=== PATIENT | female | born 1955 | race Caucasian/White ===

== ENCOUNTER → 2020-07-22 15:30 | Outpatient (CLI) | payer MEDICARE, SELFPAY ==
--- NOTE | ~2020-07-22 | MM_ITS ---
EXAMINATION: MM screening polo BI w wagner HISTORY: Screening TECHNIQUE: Craniocaudal and mediolateral oblique 3-D tomosynthesis images were obtained and synthetic 2-D images were generated. CAD analysis was submitted and interpreted. COMPARISON: Comparison to multiple prior studies sequentially, with oldest reviewed study dated 07/22. BREAST PARENCHYMAL COMPOSITION: The breasts are heterogenously dense, which may obscure small masses FINDINGS: There is no evidence of suspicious mass, calcification, or architectural distortion to sugg est malignancy in either breast. There has been no suspicious interval change. IMPRESSION: 1. No mammographic evidence of malignancy. 2. Recommend routine screening mammography in one year. BI-RADS Category 1: Negative Reviewed, dictated and finalized at location A. PAPER MACHINE OPERATOR
== END ==
DX: Z12.31 Encounter for screening mammogram for malignant neoplasm of breast (principal)
CPT/HCPCS: 77063; 77067

== ENCOUNTER → 2021-09-08 12:28 | Outpatient (CLI) | payer MEDICARE, SELFPAY ==
--- NOTE | ~2021-09-08 | MM_ITS ---
EXAMINATION: MM screening polo BI w wagner HISTORY: Screening TECHNIQUE: Craniocaudal and mediolateral oblique 3-D tomosynthesis images were obtained and synthetic 2-D images were generated. CAD analysis was submitted and interpreted. COMPARISON: Comparison to multiple prior studies sequentially, with oldest reviewed study dated 08/15. BREAST PARENCHYMAL COMPOSITION: The breasts are heterogeneously dense, which may obscure small masses . FINDINGS: There are developing asymmetries in the central aspect of the right breast, middle third. T he left breast is stable without evidence for malignancy. IMPRESSION: 1. Developing right breast asymmetries. 2. Additional mammographic views and possible breast ultrasound are recommended. BI-RADS Category 0: Incomplete: Needs additional imaging evaluation. Reviewed, dictated and finalized at location A. IMPRESSION: 1. Developing right breast asymmetries. 2. Additional mammographic views and possible breast ultrasound are recommended . BI-RADS Category 0: Incomplete: Needs additional imaging evaluation.
== END ==
DX: Z12.31 Encounter for screening mammogram for malignant neoplasm of breast (principal)
CPT/HCPCS: 77063; 77067

== ENCOUNTER → 2021-09-22 09:08 | Outpatient (CLI) | payer MEDICARE, SELFPAY ==
--- NOTE | ~2021-09-22 | MMUS_ITS ---
EXAMINATION: MM diagnostic polo RT w wagner, US breast RT complete HISTORY: Developing right breast asymmetry reported on 09/08/2021 screening mammogram examination TECHNIQUE: Additional 3-D tomosynthesis images of right breast were performed and synthetic 2-D image s were generated. Rolled medial and rolled lateral craniocaudal views. CAD analysis was submitted and interpreted. High resolution breast ultrasound was performed. COMPARISON: bilateral screening mammogram FINDINGS: MAMMOGRAPHIC FINDINGS: No suspicious mass, architectural distortion, malignant calcification, skin thickening or retraction is noted. ULTRASOUND: No suspicious mass or shadowing is detected. No other significant sonographic finding. IMPRESSION: 1. No mammographic evidence of malignancy 2. Routine annual mammographic screening is recommended BI-RADS Category 1: Negative Reviewed, dictated and finalized at location A. IMPRESSION: 1. No mammographic evidence of malignancy 2. Routine annual mammographic screening is recommended BI-RADS Category 1: Negative
== END ==
DX: R92.8 Other abnormal and inconclusive findings on diagnostic imaging of breast (principal)
CPT/HCPCS: 76641; 77061; 77065; G0279

== ENCOUNTER 2021-12-09 11:37 | Emergency (ER) | payer MEDICARE, SELFPAY ==
--- NOTE | ~2021-12-09 | XR_ITS ---
EXAMINATION: XR hand RT min 3V INDICATION: Right hand pain, history of prior amputation TECHNIQUE: Three views of the right hand are obtained. COMPARISON: None available FINDINGS: The third and fourth fingers are amputated at the distal interphalangeal joints. The bones are osteopenic which limits the sensitivity for fracture however none is seen. There is advanced oste oarthritis of multiple interphalangeal joints. There is also advanced osteoarthritis at the triscaphe and first carpometacarpal joints. IMPRESSION: 1. 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 Reviewed, dictated and finalized at location B. IMPRESSION: 1. Polyarticular osteoarthritis and prior distal amputation of the third and fo urth fingers without acute osseous abnormality identified, sensitivity limited by osteopenia.
[2021-12-09 11:47] VITALS: BP 76/56; PULSE 60; RESP 20; TEMP 36.5; O2SAT 99
--- NOTE | 2021-12-09 12:20 | ED.UPPEXIN ---
HPI - Extremity Injury (Upper) General Chief Complaint: Extremity Injury, Lower Stated Complaint: right hand swelling Time Seen by Provider: 12/09/21 12:19 Source: patient and RN notes reviewed Mode of arrival: ambulatory Limitations: no limitations History of Present Illness HPI narrative: 66-year-old female presents with concern for right hand pain and swelling. She reports on Sunday her hand was squeezed very tightly causing pain. Reports throughout the day the dorsal aspect of the hand becomes increasingly more swollen. She reports a history of arthritis, she takes medication for arthritis. She denies open skin, laceration, abrasion, redness, warmth. She denies intervention. MD complaint: injury to: right and hand Related Data Home Medications Medication Instructions Recorded Confirmed alprazolam 0.5 mg tablet 1 tablet PO BID PRN anxiety 12/09/21 12/09/21 hydrocodone 5 mg-acetaminophen 325 See Rx Instructions .Route 12/09/21 12/09/21 mg tablet .COMPLEX PRN pain meloxicam 15 mg tablet 1 tablet PO DAILY 12/09/21 12/09/21 omeprazole 40 mg capsule,delayed 1 cap PO DAILY 12/09/21 12/09/21 release Allergies Allergy/AdvReac Type Severity Reaction Status Date / Time Penicillins Allergy Unknown Verified 12/09/21 12:02 Review of Systems Review of Systems: CONSTITUTIONAL: Denies malaise, chills, sweats, or fever. SKIN: Denies rash or itching, open skin, laceration, abrasion, redness, warmth MUSCULOSKELETAL: Reports right hand pain and swelling NEUROLOGIC: Denies numbness, weakness All systems reviewed & are unremarkable except as noted in HPI and below PMFSH Comments At time of signature, agree with nursing past medical, surgical, social and family history. There is no relevant family history pertinent to the presenting complaint Exam Narrative: GENERAL: Well-appearing, well-nourished, and in no acute distress. HEAD: Normocephalic EYES: PERRLA, conjunctivae clear NECK: Supple. CHEST: Speaks in full sentences. No respiratory distress. HEART: Regular rate and rhythm. Normal and equal peripheral pulses. EXTREMITIES: Right hand and digits of hand have normal strength and sensation. 5/5 strength with digit flexion, extension. Range of motion normal. No clubbing, cyanosis. Mild dorsal edema and tenderness noted. Skin intact. Normal digital cascade with flexion of fingers, median, ulnar and radial nerve intact. Normal sensation of each side of finger. Can perform 'okay' sign, 'cross over finger test of index and middle fingers' and 'thumbs up' sign. No scissoring. Normal thumb opposition. Good capillary refill and radial pulse. Distal capillary refill less than 3 seconds. Prior amputation to digits 3 and 4 at the DIP joint noted SKIN: Warn, dry, intact, pink. No rash. Skin intact NEURO: Alert and oriented x3. PSYCH: Normal mood and affect Course Course Emergency Course: Patient is aware of diagnosis, understands and agrees to treatment plan. Anticipatory guidance given. Patient agrees to follow-up as directed and is aware of reasons to seek care at the emergency department. Portions of this record may have been created with voice recognition software Level of Care: Express Care Visit Vital Signs Vital signs: Vital Signs Temperature 97.7 F 12/09/21 11:47 Pulse Rate 60 12/09/21 11:47 Respiratory Rate 20 12/09/21 11:47 Blood Pressure 76/56 L 12/09/21 11:47 Pulse Oximetry 99 12/09/21 11:47 Oxygen Delivery Room Air 12/09/21 11:47 Temperature 97.7 F 12/09/21 11:47 Pulse Rate 60 12/09/21 11:47 Respiratory Rate 20 12/09/21 11:47 Blood Pressure 76/56 L 12/09/21 11:47 Pulse Oximetry 99 12/09/21 11:47 Oxygen Delivery Room Air 12/09/21 11:47 Reviewed. MDM - Extremity Injury (Upper) MDM Narrative Medical decision making narrative: Patients injury and pain is consistent with musculoskeletal etiology. No signs of neurological or vascular compromise on exam. Compartments and ti
== END 2021-12-09 12:30 | disposition home or self-care (01) ==
PROVIDERS: Emergency Provider Nurse Practitioner
DX: S63.91XA Sprain of unspecified part of right wrist and hand, initial encounter (principal); X58.XXXA Exposure to other specified factors, initial encounter; M19.90 Unspecified osteoarthritis, unspecified site; Z96.651 Presence of right artificial knee joint; Z89.021 Acquired absence of right finger(s)
CPT/HCPCS: 73130; 99213; G0463

== ENCOUNTER → 2022-10-03 13:59 | Outpatient (CLI) | payer MEDICARE, SELFPAY ==
--- NOTE | ~2022-10-03 | MM_ITS ---
EXAMINATION: MM screening polo BI w wagner HISTORY: Screening mammogram, family history of breast cancer in her sister. TECHNIQUE: Craniocaudal and mediolateral oblique 3-D tomosynthesis images were obtained and synthetic 2-D images were generated. CAD analysis was submitted and interpreted. COMPARISON: 09/22/2021, 09/08/2021, 07/22/2020 BREAST PARENCHYMAL COMPOSITION: The breasts are heterogeneously dense, which may obscure small masses . FINDINGS: No suspicious mass, calcification, or architectural distortion are identified in either kiki ast to suggest malignancy. There has been no suspicious interval change. IMPRESSION: 1. No mammographic evidence of malignancy. 2. Recommend routine screening mammography in one year. BI-RADS Category 1: Negative Reviewed, dictated and finalized at location A.
== END ==
DX: Z12.31 Encounter for screening mammogram for malignant neoplasm of breast (principal)
CPT/HCPCS: 77063; 77067

== ENCOUNTER 2023-05-31 10:19 | Emergency (ER) | payer MEDICARE, SELFPAY ==
[2023-05-31 10:28] VITALS: BP 122/82; PULSE 83; RESP 16; TEMP 37; O2SAT 96
--- NOTE | 2023-05-31 10:30 | ED.SKABFB ---
HPI - Skin/Abscess/Foreign Bdy General Chief complaint: Skin/Abscess/Foreign Body Stated complaint: bite on butt Time Seen by Provider: 05/31/23 10:25 Source: patient Mode of arrival: ambulatory Limitations: no limitations History of Present Illness HPI narrative: Patient is a 68-year-old female that presents with wound to left buttocks she noticed after getting out of the shower today. Patient has been stain in the hotel in [place] due to brother being in the hospital. Patient denies any drainage from area. Does state it is tender to touch. Denies any fever, chills, nausea, vomiting, diarrhea. Related Data Home Medications Medication Instructions Recorded Confirmed alprazolam 0.5 mg tablet 1 tablet PO BID PRN anxiety 12/09/21 12/09/21 hydrocodone 5 mg-acetaminophen 325 See Rx Instructions .Route 12/09/21 12/09/21 mg tablet .COMPLEX PRN pain meloxicam 15 mg tablet 1 tablet PO DAILY 12/09/21 12/09/21 omeprazole 40 mg capsule,delayed 1 cap PO DAILY 12/09/21 12/09/21 release losartan 25 mg tablet mg 05/31/23 05/31/23 metoprolol tartrate 25 mg tablet mg 05/31/23 Allergies Allergy/AdvReac Type Severity Reaction Status Date / Time Penicillins Allergy Unknown Verified 12/09/21 12:02 Review of Systems Review of Systems: All systems reviewed & are unremarkable except as noted in HPI and below Constitutional: Constitutional: Denies body ache(s), Denies chills, Denies fatigue, Denies fever(s), Denies headache(s), Denies malaise and Denies weakness Eyes: Eyes: Denies blurry vision, Denies irritation and Denies loss of vision ENT: Denies otalgia, Denies headache(s), Denies nasal discharge, Denies sinus pain and Denies sore throat Cardiovascular: Cardiovascular: Denies chest pain, Denies irregular heart rhythm and Denies dyspnea Respiratory: Respiratory: Denies dyspnea Gastrointestinal: Gastrointestinal: Denies abdominal pain, Denies melena, Denies hematochezia, Denies diarrhea, Denies nausea and Denies vomiting Musculoskeletal: Musculoskeletal: Denies back pain, Denies myalgias and Denies arthralgias Integumentary/Breasts: Skin/Breast: Denies pruritus, Denies rash and Reports wounds Neurologic: Denies headache(s), Denies loss of vision and Denies weakness Psychiatric: Psychiatric: Reports no additional psychiatric complaints Endocrine: Endocrine: Denies fatigue PMFSH Comments At time of signature, agree with nursing past medical, surgical, social and family history. There is no relevant family history pertinent to the presenting complaint. Exam Const: General: cooperative, healthy appearing, comfortable, no acute distress and well nourished Nutritional Appearance: well nourished Orientation/consciousness: patient oriented x3 Limitations: no limitations HENMT: Head: normal to inspection, normocephalic and atraumatic Ears: hearing grossly normal bilaterally and external ears normal Face/Nose/Sinus: Normal external nose present, normal facial exam and face symmetric Face and sinus: normal facial exam and face symmetric Mouth: Yes lip normal Eyes: General: appearance normal, both eyes and all related structures Alignment and Position: alignment normal and position normal Periorbital: periorbital findings normal Eyelids: eyelids normal Pupils: Equal, round and reactive pupils present EOM: EOMs intact bilaterally Neck: Neck: normal visual inspection, full ROM and supple Chest: Chest palpation & inspection: normal inspection of the chest Resp: Effort & Inspection: normal respiratory effort and able to speak in complete sentences Auscultation: clear to auscultation bilaterally Cardio: Rate: regular rate Rhythm: regular rhythm Heart sounds: S1 normal heart sound present and S2 normal heart sound present GI: Inspection: normal to inspection Skin: General skin exam: normal color and no rashes or lesions noted Lesions: lesion noted pustule left buttock size (4x4), borders well-defined, color red, consiste
== END 2023-05-31 11:04 | disposition home or self-care (01) ==
PROVIDERS: Emergency Provider Nurse Practitioner Family
DX: L03.317 Cellulitis of buttock (principal); Z79.899 Other long term (current) drug therapy
CPT/HCPCS: 99213; G0463

== ENCOUNTER → 2023-06-29 12:36 | Outpatient (CLI) | payer MEDICARE, SELFPAY ==
--- NOTE | ~2023-06-29 | DEXA_ITS ---
Bone Density Report Name: JADA CARR Age: 68 Sex: Female Ethnicity: White Date of : 1955 Indication: postmenopausal; screening for osteoporosis; hysterectomy; Referring Provider: RACHEL HELM Study: Bone densitometry was performed. Exam Date: June 29, 2023 Accession number: [id number] Bone Density: Region BMD T-score Z-score Classification AP Spine (L1-L4) 0.725 -2.9 -0.8 Osteoporosis Femoral Neck (Left) 0.510 -3.1 -1.3 Osteoporosis Total Hip (Left) 0.631 -2.5 -1.0 Osteoporosis Femoral Neck (Right) 0.552 -2.7 -0.9 Osteoporosis Total Hip (Right) 0.682 -2.1 -0.6 Osteopenia Total Hip Mean 0.657 -2.3 -0.8 Osteopenia World Health Organization criteria for BMD impression classify patients as: Normal (T-score at or above -1.0), Osteopenia (T-score between -1.0 and -2.5), or Osteoporosis (T-score at or below -2.5). 10-year Fracture Risk: FRAX not reported because: Some T-score for Spine Total or Hip Total or Femoral Neck at or below -2.5 Clinical Information Provided by Patient: Has used the following medications: HRT (i.e. estrogen/hormone therapy), MTV, HRT PELLETS Has the following medical conditions: Hysterectomy Patient maximum height was 52.7 Menopause Age: 38 Drinks caffeinated beverages Onset of menses at age 12 Number of children 0 Missed period for more than 6 months in a row Impression: The patient has osteoporosis, based on the Left Femoral Neck T-score. Discussion: INCREASED RISK OF FRACTURE. BONE DENSITY IS UNDESIRABLY LOW AT ONE OR MORE SKELETAL SITES, CONSISTENT WITH POSTMENOPAUSAL OSTEOPOROSIS. This patient's lowest T-score meets the World Health Organization's (WHO) criteria for osteoporosis at one or more sites (T-score -2.5 or below). In untreated patients, the risk of osteoporotic fracture increases approximately two-fold for each 1.0 SD decrease in T-score. Low bone density is not the only risk factor for fracture; also consider factors such as patient's age, frailty or poor health, risk of falling, risk of injury, previous osteoporotic fracture, family history of osteoporosis, cigarette smoking, low body weight, etc. Not everyone with low bone mineral density has osteoporosis; osteomalacia and other metabolic bone disorders should also be considered. Patients who have osteoporosis should be evaluated for specific diseases and conditions (secondary causes) that may cause or contribute to bone loss. The [place] [employer]ocrinologists (AACE) and National Osteoporosis Foundation (NOF) recommend pharmacologic intervention for all postmenopausal women whose T-score is in this range. The patient should follow a healthful lifestyle (good nutrition with adequate calcium and vitamin D, and appropriate weight-bearing exercise). Follow-Up: Consider a repeat BMD and Verte
== END ==
DX: M81.0 Age-related osteoporosis without current pathological fracture (principal); E28.39 Other primary ovarian failure
CPT/HCPCS: 77080

== ENCOUNTER 2023-11-08 14:18 | Outpatient (CLI) | payer MEDICARE, SELFPAY ==
--- NOTE | ~2023-11-08 | MM_ITS ---
EXAMINATION: MM screening polo BI w wagner HISTORY: Screening TECHNIQUE: Craniocaudal and mediolateral oblique 3-D tomosynthesis images were obtained and synthetic 2-D images were generated. CAD analysis was submitted and interpreted. COMPARISON: Comparison to multiple prior studies sequentially, with oldest reviewed study dated 05/04. BREAST PARENCHYMAL COMPOSITION: Dense: The breasts are heterogeneously dense, which may obscure small masses FINDINGS: There is no evidence of suspicious mass, calcification, or architectural distortion to sugg est malignancy in either breast. There has been no suspicious interval change. IMPRESSION: 1. No mammographic evidence of malignancy. 2. Recommend routine screening mammography in one year. BI-RADS Category 1: Negative Reviewed, dictated and finalized at location B.
== END 2023-11-08 14:19 ==
DX: Z12.31 Encounter for screening mammogram for malignant neoplasm of breast (principal)
CPT/HCPCS: 77063; 77067

== ENCOUNTER 2023-12-12 14:59 | Emergency (ER) | payer MEDICARE, SELFPAY ==
[2023-12-12 15:05] VITALS: BP 127/78; PULSE 60; RESP 16; TEMP 37.1; O2SAT 99
--- NOTE | 2023-12-12 15:45 | ED.WOUNDLAC ---
HPI - Wound/Laceration General Chief Complaint: Wound/Laceration Stated Complaint: bite on back Time Seen by Provider: 12/12/23 15:30 Source: patient, RN notes reviewed and old records reviewed Mode of arrival: ambulatory Limitations: no limitations History of Present Illness HPI narrative: 68 year old female who [facility] with complaints of red raised area to her left upper back that is itchy and feels stingy at times for the past 2-3 days. Patient reports that she thinks it is some kind of bite or sting. Patient has 1 cm red raised area which has no vesicle formation but noted some warmth to area. Patient has applied some HENRY ointment to area denies any fevers. Onset (ago): day(s) (2-3) Location: back (upper left) Treatments prior to arrival: other (HENRY) Related Data Home Medications Medication Instructions Recorded Confirmed alprazolam 0.5 mg tablet 1 tablet PO BID PRN anxiety 12/09/21 12/09/21 hydrocodone 5 mg-acetaminophen 325 See Rx Instructions .Route 12/09/21 12/09/21 mg tablet .COMPLEX PRN pain meloxicam 15 mg tablet 1 tablet PO DAILY 12/09/21 12/09/21 omeprazole 40 mg capsule,delayed 1 cap PO DAILY 12/09/21 12/09/21 release losartan 25 mg tablet mg 05/31/23 05/31/23 metoprolol tartrate 25 mg tablet mg 05/31/23 Allergies Allergy/AdvReac Type Severity Reaction Status Date / Time Penicillins Allergy Unknown Verified 12/09/21 12:02 Review of Systems Review of Systems: CONSTITUTIONAL: Denies fever, chills, or sweats. CARDIOVASCULAR: Denies chest pain, palpitations, or edema. RESPIRATORY: Denies cough or dyspnea. GASTROINTESTINAL: Denies abdominal pain, nausea, vomiting SKIN: Reports red raised area to left upper back with some warmth minimal swelling of tissue Denies purulent drainage,no vesicles, MUSCULOSKELETAL: Denies myalgia. NEUROLOGIC: Denies headache, numbness All systems reviewed & are unremarkable except as noted in HPI and below PMFSH Past Medical History Medical History Anxiety Arthritis GERD (gastroesophageal reflux disease) Hypertension Osteoporosis Surgical History Surgical History H/O: hysterectomy Status post total right knee replacement Social History Social History Smoking status: Never smoker Alcohol intake: current Alcohol use details: social Substance use type: does not use Comments At time of signature, agree with nursing past medical, surgical, social and family history. There is no relevant family history pertinent to the presenting complaint Exam Narrative: GENERAL: Well-appearing, well-nourished, and in no acute distress. HEAD: Normocephalic, atraumatic. EYES: PERRLA and EOMI. ENT: Nares clear, no rhinorrhea or epistaxis. Mucous membranes moist. NECK: Supple.no lymphadenopathy CHEST: Clear to auscultation. No respiratory distress.SAO2 99% on room air HEART: Regular rate and rhythm. No murmur heard. Normal peripheral pulses. ABDOMEN: Soft, nontender, nondistended, normal active bowel sounds. EXTREMITIES: Normal range of motion. No edema. SKIN: Warm, dry.1cm raised red lesion to left upper back with no vesicle or open tissue noted , mild swelling and warmth noted is itchy and stingy NEURO: No focal deficits. Alert and oriented x3. tissue noted, Course Course Emergency Course: Patient is aware of diagnosis, understands and agrees to treatment plan. Anticipatory guidance given. Patient agrees to follow-up as directed and is aware of reasons to seek care at the emergency department. Portions of this record may have been created with voice recognition software Level of Care: Express Care Visit Vital Signs Vital signs: Vital Signs Temperature 37.1 C 12/12/23 15:05 Pulse Rate 60 12/12/23 15:05 Respiratory Rate 16 12/12/23 15:05 Blood Pressure 127/78 /
== END 2023-12-12 15:51 | disposition home or self-care (01) ==
PROVIDERS: Emergency Provider Registered Nurse
DX: S20.462A Insect bite (nonvenomous) of left back wall of thorax, initial encounter (principal); W57.XXXA Bitten or stung by nonvenomous insect and other nonvenomous arthropods, initial encounter; M19.90 Unspecified osteoarthritis, unspecified site; K21.9 Gastro-esophageal reflux disease without esophagitis; I10 Essential (primary) hypertension; M81.0 Age-related osteoporosis without current pathological fracture
CPT/HCPCS: 99213; G0463

== ENCOUNTER 2025-03-05 13:38 | Outpatient (CLI) | payer MEDICARE, SELFPAY ==
--- NOTE | ~2025-03-05 | MM_ITS ---
EXAMINATION: MM screening polo BI w wagner HISTORY: Screening TECHNIQUE: Craniocaudal and mediolateral oblique 3-D tomosynthesis images were obtained and synthetic 2-D images were generated. CAD analysis was submitted and interpreted. COMPARISON: Comparison to multiple prior studies sequentially, with oldest reviewed study dated 07/22/2020. BREAST PARENCHYMAL COMPOSITION: Dense: The breasts are heterogeneously dense, which may obscure small masses FINDINGS: There is no evidence of suspicious mass, calcification, or architectural distortion to suggest malignancy in either breast. There has been no suspicious interval change. IMPRESSION: 1. No mammographic evidence of malignancy. 2. Recommend routine screening mammography in one year. BI-RADS Category 1: Negative Reviewed, dictated and finalized at location C.
== END 2025-03-05 13:39 | disposition home or self-care (01) ==
LOC: MICIMG 13:40
DX: Z12.31 Encounter for screening mammogram for malignant neoplasm of breast (principal)
CPT/HCPCS: 77063; 77067